=== PATIENT | female | born 1965 | race Caucasian/White ===

== ENCOUNTER 2018-01-30 13:10 | Outpatient (CLI) | payer SELFPAY ==
--- NOTE | 2018-01-31 11:42 | Ultrasound Report ---
EXAM: PELVIC ULTRASOUND EXAM DATE: 01/30/2018 03:33 PM. CLINICAL HISTORY: Mechanical complication of intrauterine contraceptive device. COMPARISON: None. TECHNIQUE: Realtime transabdominal pelvic scan performed to identify the uterus and adnexa and as an overview of other pelvic structures, followed by transvaginal scan to provide greater detail of the u terus and adnexa, with static image documentation. FINDINGS: Uterus: 6.4 x 3.4 x 4.1 cm, volume 46 cc. Anteverted position. Heterogeneous myometrium. Masses: 4.7 x 2.8 x 3.3 cm solid hypoechoic exophytic right fundal mass extending into the right adne xal region. Minimal peripheral flow is present. Mass abuts the right ovary. Endometrium: 6.5 mm. Endometrium is heterogeneous. Endometrium is not well seen. IUD is noted in the lower uterine segment and cervical region. Cervix: Unremarkable. Right Ovary: Possible right ovary measuring 2.1 x 1.1 x 1.9 cm, volume 2.2 cc. Normal echotexture and blood flow. Left Ovary: 1.9 x .9 x 1.4 cm, volume 1.2 cc. Normal echotexture and blood flow. Free Fluid: None. Other: None. IMPRESSION: 1. Malpositioned IUD in the lower uterine segment. 2. Exophytic soft tissue solid mass extending from the right fundal region measuring 4.7 x 2.8 x 3.3 cm extending into the right adnexal region and abutting the right ovary. This most likely represents a pedunculated subserosal fibroid. Given close proximity to the right ovary, underlying right ovarian mass is not excluded but felt to be less likely. Findings could be confirmed with MRI as necessary. 2. Normal left ovary and adnexa. [facility] Referring Provider Line: [phone] SITE ID: [id number]
== END 2018-01-30 13:11 | disposition home or self-care (01) ==
LOC: DI 13:10
PROVIDERS: ATTEND Registered Nurse
DX: T83.89XA Other specified complication of genitourinary prosthetic devices, implants and grafts, initial encounter (principal); N85.9 Noninflammatory disorder of uterus, unspecified
CPT/HCPCS: 76830; 76856